=== PATIENT | female | born 1995 | race Caucasian/White ===

== ENCOUNTER 2022-04-08 08:20 | Inpatient (IN) | payer MEDICAID ==
[~2022-04-08] VITALS: Ht 162.6 cm; Wt 69.9 kg
[~2022-04-08 08:20] MED LIST: PROZAC; [UNRECOGNIZED DRUG - OTHER]
[2022-04-08] MEDS ORDERED: PREN-96 PO (08:57)
[2022-04-08] MEDS ORDERED: PROMETHAZINE HCL 25 MG/ML 1ML IV PRN (10:00)
[2022-04-08] MEDS ORDERED: PENICILLIN G POT 5MIL/D5 50ML 50 ML IV ONE (10:00)
[2022-04-08] MEDS ORDERED: LIDOCAINE 2%HCL (LOCAL ANESTH.) INJ 10ml MDV IJ PRN (10:00)
[2022-04-08] MEDS ORDERED: BUTORPHANOL TARTRATE 2 MG/1 ML VIAL IV PRN ×2 (10:00)
[2022-04-08] MEDS ORDERED: LACTATED RINGER'S 1,000 ML IV SCH (10:00)
[2022-04-08 10:35] LABS: Urine Bacteria FEW /hpf (None Seen); Urine Blood TRACE /uL (Negative); Urine Specific Gravity 1.015 (1.001-1.035); Urine WBC 16 /hpf (0 - 5)
[2022-04-08 10:40] LABS: Basophils # (auto) 0 10 ^3/uL (0-0.2); Basophils % (auto) 0.3 % (0.0-2.0); Eosinophils # (auto) 0.1 10 ^3/uL (0-0.8); Eosinophils % (auto) 0.5 % (0.0-7.0); Hematocrit 36.5 % (36.0-46.0); Hemoglobin 12.4 g/dL (12.2-16.2); Lymphocytes # (auto) 1.2 10 ^3/uL (0.4-5.4); Lymphocytes % (auto) 10.2 % (10.0-50.0); Mean Corpuscular Hgb Conc. 33.9 g/dL (32.0-36.0); Mean Corpuscular Volume 88.5 fL (80.0-100.0); Monocytes # (auto) 0.4 10 ^3/uL (0-1.3); Monocytes % (auto) 3.7 % (0.0-12.0); Neutrophils # (auto) 9.7 10 ^3/uL (1.6-8.6); Neutrophils % (auto) 85.3 % (37.0-80.0); Nucleated Red Blood Cells % 0.1 %; Red Blood Cells 4.12 10^6/uL (4.0-5.20); Red Cell Distribution Width 13.7 % (11.8-14.3); White Blood Cell 11.4 10^3/uL (4.4-10.8)
[2022-04-08 10:45] LABS: Alcohol, Urine < 3.0 mg/dL (0-10); Benzodiazephine Screen, Urine NEGATIVE (NEGATIVE); Cannabinoid Screen, Urine NEGATIVE (NEGATIVE); Cocaine Screen, Urine NEGATIVE (NEGATIVE); Opiate Scree,Urine NEGATIVE (NEGATIVE); Phencyclidine Screen, Urine NEGATIVE (NEGATIVE)
[2022-04-08 10:47] LABS: Amphetamine Screen, Urine NEGATIVE (NEGATIVE); Barbiturate Scree,Urine NEGATIVE (NEGATIVE)
[2022-04-08 10:51] LABS: Albumin 2.4 g/dL (3.4-5.0); Calcium 8.8 mg/dL (8.5-10.1); Potassium 4.2 mmol/L (3.5-5.1)
[2022-04-08 10:54] LABS: BUN/Creatinine Ratio 12.2; Bilirubin, Total 0.4 mg/dL (0.2-1.0); Total Protein 6.4 g/dL (6.4-8.2)
[2022-04-08] MEDS: DERMOPLAST 60ML BOTTLE TOP PRN (10:55)
[2022-04-08] MEDS: WITCH HAZEL-GLYCERIN PAD TOP PRN (10:55)
[2022-04-08] MEDS: PHISODERM TOP SOLN 240ML BTL TOP PRN (10:55)
[2022-04-08 12:14] LABS: INR 0.86 (0.9-1.15); Partial Thromboplastin Time 27.9 sec (24.6-33.4)
[2022-04-08] MEDS ORDERED: PHENYLEPHRINE HCL 10 MG/ML VL IV ONE (12:26)
[2022-04-08] MEDS ORDERED: LACTATED RINGER'S 1,000 ML IV ONE (12:45)
[2022-04-08] MEDS ORDERED: ePHEDrine SULFATE 50 MG/ML AMP IV ONE ×2 (12:45→13:15)
[2022-04-08] MEDS ORDERED: ROPIVACAINE HCL 200 ML EPI SCH (12:45)
[2022-04-08] MEDS ORDERED: NALOXONE HCL 0.4 MG/ML VIAL IV ONE ×2 (12:45→13:15)
[2022-04-08] MEDS ORDERED: LIDOCAINE HCL 2 %PF INJ 10ML AMP IJ ONE (12:45)
[2022-04-08] MEDS ORDERED: fentaNYL CITRATE 100 MCG/2 ML VL IV ONE (12:45)
[2022-04-08] MEDS ORDERED: LIDOCAINE 1%-Mpf/Epinephrine 1:200,000 ONE (13:07)
[2022-04-08] MEDS ORDERED: Lidocaine W-Epinephrine 1.5%-1:200,000 INJ 10ml Vial ONE (13:09)
[2022-04-08] MEDS ORDERED: LIDOCAINE 1%-Mpf/Epinephrine 1:200,000 IJ ONE (13:15)
[2022-04-08] MEDS ORDERED: TERBUTALINE SULFATE 1 MG/ML 1ML VIAL SC PRN (15:15)
[2022-04-08] MEDS ORDERED: LACT. RINGERS/OXYTOCIN 20UNITS 1,000 ML IV SCH (15:15)
[2022-04-08] MEDS ORDERED: NS/OXYTOCIN 20UNITS 1,000 ML IV SCH (15:45)
[2022-04-08] MEDS ORDERED: ceFAZolin 2 GM in D5W 5% 100 ML IV ONE (16:45)
[2022-04-08] MEDS: PENICILLIN G POTASSIUM 2,500,000 UNITS in D5W 5% 50 ML IV SCH (16:47)
[2022-04-08] MEDS ORDERED: MORPHINE SULF PF 5 MG/10 ML VIAL ONE (18:02)
[2022-04-08] MEDS ORDERED: MIDAZOLAM HCL 2MG/2ML 2ml VIAL (1mg/ml) ONE (18:03)
[2022-04-08] MEDS ORDERED: fentaNYL CITRATE 100 MCG/2 ML VL ONE (18:03)
[2022-04-08] MEDS ORDERED: oxyTOCIN 10 UNIT/ML 10ML VIAL ONE (18:29)
[2022-04-08] MEDS ORDERED: LIDOCAINE 2% (LOCAL ANESTH.) PF 5ml SDV ONE (18:29)
[2022-04-08] MEDS ORDERED: ONDANSETRON HCL 4 MG/2 ML VIAL IV PRN ×2 (18:45→19:00)
[2022-04-08] MEDS ORDERED: LACT. RINGERS/OXYTOCIN 20UNITS 1,000 ML IV ONE (18:45)
[2022-04-08] MEDS ORDERED: LABETALOL HCL 5 MG/ML 4ML SYRINGE IV PRN (19:00)
[2022-04-08] MEDS ORDERED: NALBUPHINE HCL 10 MG/1ml INJECTION SUBCUT ONE (19:00)
[2022-04-08] MEDS ORDERED: NALOXONE HCL 0.4 MG/ML VIAL IV PRN (19:00)
[2022-04-08] MEDS ORDERED: MIDAZOLAM HCL 2MG/2ML 2ml VIAL (1mg/ml) IV PRN (19:00)
[2022-04-08] MEDS ORDERED: DexAMETHasone SOD PHOS 10MG/1ML VIAL INJ IV PRN (19:00)
[2022-04-08] MEDS ORDERED: ePHEDrine SULFATE 50 MG/ML AMP IV PRN (19:00)
[2022-04-08] MEDS ORDERED: diphenhdrAMINE HCL 50 MG/1 ML VL IV PRN ×2 (19:00→20:30)
[2022-04-08] MEDS ORDERED: KETOROLAC TROMETH 30 MG/ML 1ML VIAL IV PRN (19:00)
[2022-04-08] MEDS ORDERED: HYDROmorphone HCL 2 MG/ML VL/or syr ONE (19:30)
[2022-04-08] MEDS: HYDROmorphone HCL 2 MG/ML VL/or syr IV PRN ×2 (19:31→19:46)
[2022-04-08] MEDS ORDERED: diphenhdrAMINE HCL 50 MG/1 ML VL ONE (20:09)
[2022-04-08] MEDS ORDERED: diphenhdrAMINE HCL 50 MG/1 ML VL IV ONE (20:15)
[2022-04-08 20:16] VITALS: BP 102/67
[2022-04-08 20:46] VITALS: BP 101/52
[2022-04-08] MEDS ORDERED: ceFAZolin 1GM/50ML 50 ML IV SCH (21:00)
[2022-04-08 21:16] VITALS: BP 94/59
[2022-04-08 21:30] VITALS: BP 98/61
[2022-04-08 22:28] VITALS: BP 103/59
[2022-04-08 22:58] VITALS: BP 94/50
[2022-04-08 23:34] LABS: Basophils # (auto) 0.2 10 ^3/uL (0-0.2); Basophils % (auto) 1.2 % (0.0-2.0); Eosinophils # (auto) 0.1 10 ^3/uL (0-0.8); Eosinophils % (auto) 0.3 % (0.0-7.0); Hematocrit 30.4 % (36.0-46.0); Hemoglobin 10.4 g/dL (12.2-16.2); Lymphocytes # (auto) 0.5 10 ^3/uL (0.4-5.4); Lymphocytes % (auto) 3.3 % (10.0-50.0); Mean Corpuscular Hemoglobin 30.4 pg (28.0-32.0); Mean Corpuscular Hgb Conc. 34.2 g/dL (32.0-36.0); Mean Corpuscular Volume 88.7 fL (80.0-100.0); Monocytes # (auto) 0.4 10 ^3/uL (0-1.3); Monocytes % (auto) 2.7 % (0.0-12.0); Neutrophils # (auto) 14.1 10 ^3/uL (1.6-8.6); Neutrophils % (auto) 92.5 % (37.0-80.0); Red Blood Cells 3.43 10^6/uL (4.0-5.20); Red Cell Distribution Width 13.3 % (11.8-14.3); White Blood Cell 15.2 10^3/uL (4.4-10.8)
[2022-04-09] VITALS (8 sets, daily range): BP systolic 93–125; BP diastolic 49–65
[2022-04-09] MEDS: PENICILLIN G POTASSIUM 2,500,000 UNITS in D5W 5% 50 ML IV SCH ×3 (03:24→03:27)
[2022-04-09] MEDS ORDERED: ACETAMINOPHEN IV 1000 MG/100ML (10MG/ML) IV PRN (03:30)
[2022-04-09] MEDS ORDERED: DOCU-94 PO (03:58)
[2022-04-09] MEDS ORDERED: HYDR-4902 PO (03:58)
[2022-04-09 05:07] LABS: Rubella Antibodies, IgG 1.39 index (Immune >0.99)
[2022-04-09] MEDS: LACTATED RINGER'S 1,000 ML IV SCH ×3 (05:14→18:30)
[2022-04-09 07:23] LABS: Basophils # (auto) 0 10 ^3/uL (0-0.2); Basophils % (auto) 0.2 % (0.0-2.0); Eosinophils # (auto) 0 10 ^3/uL (0-0.8); Eosinophils % (auto) 0.1 % (0.0-7.0); Hematocrit 28.5 % (36.0-46.0); Hemoglobin 9.7 g/dL (12.2-16.2); Lymphocytes # (auto) 0.9 10 ^3/uL (0.4-5.4); Lymphocytes % (auto) 6.4 % (10.0-50.0); Mean Corpuscular Hemoglobin 30.1 pg (28.0-32.0); Mean Corpuscular Volume 88.5 fL (80.0-100.0); Monocytes # (auto) 0.5 10 ^3/uL (0-1.3); Monocytes % (auto) 3.5 % (0.0-12.0); Neutrophils # (auto) 12.6 10 ^3/uL (1.6-8.6); Neutrophils % (auto) 89.8 % (37.0-80.0); Red Blood Cells 3.22 10^6/uL (4.0-5.20); Red Cell Distribution Width 13.5 % (11.8-14.3)
[2022-04-09] MEDS: IBUPROFEN 600 MG TAB PO PRN ×3 (10:25→23:43)
[2022-04-09] MEDS: ACETAMINOPHEN 325 MG TAB PO PRN ×2 (15:30→20:09)
[2022-04-10 03:00] VITALS: BP 105/57
[2022-04-10] MEDS: ACETAMINOPHEN 325 MG TAB PO PRN (04:59)
[2022-04-10] MEDS ORDERED: PENICILLIN G BENZ 1200000 UNITS/2 ML SYRG IM ONE (06:45)
[2022-04-10] MEDS ORDERED: BISACODYL 10 MG RECT SUPP PR PRN (06:45)
[2022-04-10] MEDS ORDERED: HYDROcodone-ACET 5/325MG TAB PO PRN (06:45)
[2022-04-10 07:00] VITALS: BP 110/60
[2022-04-10] MEDS ORDERED: DOCUSATE CALCIUM 240 MG CAP PO SCH (10:00)
[2022-04-10] MEDS ORDERED: DOCUSATE SOD 100 MG CAP PO SCH (10:00)
[2022-04-10] MEDS: IBUPROFEN 800 MG TAB PO PRN ×2 (10:01→16:00)
[2022-04-10 11:00] VITALS: BP 101/61
[2022-04-10] MEDS: SIMETHICONE 80 MG CHEWABLE TABLET PO SCH ×2 (12:00→18:00)
[2022-04-10] MEDS: HYDROcodone-ACET 5/325MG TAB PO PRN ×2 (13:02→16:52)
[2022-04-10 15:00] VITALS: BP 105/58
[2022-04-10 19:30] VITALS: BP 109/65
[2022-04-10] MEDS: DERMOPLAST 60ML BOTTLE TOP PRN (20:21)
[2022-04-10] MEDS: WITCH HAZEL-GLYCERIN PAD TOP PRN (20:21)
[2022-04-10] MEDS: PHISODERM TOP SOLN 240ML BTL TOP PRN (20:21)
== END 2022-04-10 20:36 | disposition home or self-care (01) | DRG 540 ==
LOC: LDRP 08:20 → OBSVTOIN 09:49 → LDRP 21:40
PROVIDERS: ADMIT Obstetrics & Gynecology; ATTEND Obstetrics & Gynecology
PROC: 10D00Z1 Extraction of Products of Conception, Low, Open Approach (ICD-10-PCS; principal; 2022-04-08 18:12)
DX: O76 Abnormality in fetal heart rate and rhythm complicating labor and delivery (principal); O77.0 Labor and delivery complicated by meconium in amniotic fluid; Z37.0 Single live birth; Z3A.39 39 weeks gestation of pregnancy; Z20.822 Contact with and (suspected) exposure to COVID-19
CPT/HCPCS: 36415; 59025; 62282; 76805; 80053; 80307; 81001; 81002; 84112; 85025; 85384; 85610; 85730; 86592; 86703; 86762; 86850; 86900; 86901; 87340; 94760; 96360; 96361; 96372; G0378; J0561; J0690; J2001; J2250; J2540; J2590; J7060